=== PATIENT | female | born 1960 | race Caucasian/White ===

== ENCOUNTER 2017-07-27 10:01 | Day surgery (SDC) | payer OTHER, MEDICAID ==
[2017-07-23 13:57] LABS: BASOPHILS % (AUTO) 0.7 % (0.0-2.0); EOSINOPHILS # (AUTO) 0.2 K/uL (0.0-0.4); EOSINOPHILS % (AUTO) 4.5 % (0.0-4.0); HEMATOCRIT 43.3 % (36-48); HEMOGLOBIN 14.4 g/dL (12.0-16.0); LYMPHOCYTES # (AUTO) 2.1 K/uL (1.0-5.5); LYMPHOCYTES % (AUTO) 41.5 % (20.5-51.5); MEAN CORPUSCULAR HEMOGLOBIN 32 pg (27-31); MEAN CORPUSCULAR HGB CONC 33 % (32-36); MEAN CORPUSCULAR VOLUME 95 fL (79.0-98.0); MONOCYTES # (AUTO) 0.5 K/uL (0.0-1.0); MONOCYTES % (AUTO) 9.1 % (1.7-9.3); NEUTROPHILS # (AUTO) 2.2 K/uL (1.8-7.7); NEUTROPHILS % (AUTO) 44.2 % (40.0-70.0); PLATELET COUNT (AUTO) 229 K/uL (130-430); RED BLOOD CELL COUNT(AUTO) 4.55 MIL/uL (4.2-6.2); RED CELL DISTRIBUTION WIDTH 13.2 % (9.0-15.0)
[2017-07-23 14:16] LABS: BILIRUBIN,URINE NEGATIVE (NEGATIVE); BLOOD, URINE NEGATIVE (NEGATIVE); CLARITY/URINE CLEAR (CLEAR); COLOR,URINE YELLOW (YELLOW); GLUCOSE,URINE NEGATIVE (NEGATIVE); KETONES,URINE 1+ (NEGATIVE); LEUKOCYTE ESTERASE ,URINE NEGATIVE (NEGATIVE); NITRITE, URINE NEGATIVE (NEGATIVE); PH,URINE 7.5 (5.0-8.0); PROTEIN URINE NEGATIVE (NEGATIVE)
[2017-07-23 14:47] LABS: CALCIUM 9.3 mg/dL (8.4-11.0); CREATININE 0.72 mg/dL (0.55-1.30); POTASSIUM 3.8 mmol/L (3.5-5.1)
[~2017-07-27] VITALS: Ht 165.1 cm; Wt 109.8 kg
[~2017-07-27 10:01] MED LIST: CEFAZOLIN SOD 2 GM in D5W 50 ML IV ONE
[2017-07-27] MEDS ORDERED: MIDAZOLAM HCL 5 MG/5 ML VIAL IVP ONE (11:30)
[2017-07-27] MEDS ORDERED: KETOROLAC TROMETHAMINE 30 MG VIAL IVP ONE (11:30)
[2017-07-27] MEDS ORDERED: LR 1,000 ML IV.SOLN IV ONE (11:30)
[2017-07-27] MEDS ORDERED: PROPOFOL 200MG/ 20ML VIAL (DIPRIVAN) IV ONE (11:30)
[2017-07-27] MEDS ORDERED: LIDOCAINE MPF 0.5% 250 MG/50 ML VIAL INJ ONE (11:30)
[2017-07-27] MEDS ORDERED: NS IRRIG SOLN 1000 ML IR ONE (11:30)
[2017-07-27] MEDS ORDERED: ONDANSETRON HCL 4 MG/2 ML VIAL IVP PRN (12:30)
[2017-07-27] MEDS ORDERED: fentaNYL CITRATE/PF 100 MCG/2 ML AMP IVP PRN ×2 (12:30)
[2017-07-27] MEDS ORDERED: D5LR 1,000 ML IV SCH (12:59)
[2017-07-27] MEDS ORDERED: DIPHENHYDRAMINE HCL 25 MG CAPSULE PO PRN (13:00)
[2017-07-27] MEDS ORDERED: HYDROcodone/ACETAMIN 5-325 MG TAB (NORCO/ VICODIN) PO PRN (13:00)
[2017-07-27] MEDS ORDERED: fentaNYL CITRATE/PF 100 MCG/2 ML AMP IVP ONE (13:05)
[2017-07-27] MEDS ORDERED: fentaNYL CITRATE/PF 100 MCG/2 ML AMP ONE (13:11)
[2017-07-27] MEDS ORDERED: HYDROcodone/ACETAMIN 5-325 MG TAB (NORCO/ VICODIN) ONE (14:32)
[2017-07-27 17:20] VITALS: BP_SYST 118
== END 2017-07-27 16:50 | disposition home or self-care (01) ==
LOC: SMU 10:01 → SDS 10:01
PROVIDERS: ATTEND Orthopaedic Surgery
DX: G56.01 Carpal tunnel syndrome, right upper limb (principal); Z68.37 Body mass index [BMI] 37.0-37.9, adult; R56.9 Unspecified convulsions; M17.0 Bilateral primary osteoarthritis of knee; K21.9 Gastro-esophageal reflux disease without esophagitis; Z79.899 Other long term (current) drug therapy; B19.20 Unspecified viral hepatitis C without hepatic coma; Z98.890 Other specified postprocedural states; E66.3 Overweight
CPT/HCPCS: 36415; 64721; 71046; 80048; 81003; 85025; J0690; J1885; J2001; J2250; J2704; J3010; J7060; J7120

== ENCOUNTER 2018-02-05 09:11 | Inpatient (IN) | payer OTHER, MEDICAID ==
[2018-01-28 12:06] LABS: BILIRUBIN,URINE NEGATIVE (NEGATIVE); BLOOD, URINE NEGATIVE (NEGATIVE); CLARITY/URINE CLEAR (CLEAR); COLOR,URINE YELLOW (YELLOW); GLUCOSE,URINE NEGATIVE (NEGATIVE); KETONES,URINE NEGATIVE (NEGATIVE); LEUKOCYTE ESTERASE ,URINE NEGATIVE (NEGATIVE); NITRITE, URINE NEGATIVE (NEGATIVE); PH,URINE 7.5 (5.0-8.0); PROTEIN URINE NEGATIVE (NEGATIVE); UROBILINOGEN,URINE 0.2 (0.2-1.0)
[2018-01-28 12:17] LABS: EOSINOPHILS # (AUTO) 0.2 K/uL (0.0-0.4); LYMPHOCYTES # (AUTO) 2.3 K/uL (1.0-5.5); MEAN CORPUSCULAR HEMOGLOBIN 32 pg (27-31); MEAN CORPUSCULAR VOLUME 96 fL (79.0-98.0)
[2018-01-28 12:20] LABS: CALCIUM 9.3 mg/dL (8.4-11.0); CREATININE 0.73 mg/dL (0.55-1.30); POTASSIUM 4.2 mmol/L (3.5-5.1)
[2018-01-28 12:28] LABS: BASOPHILS % (AUTO) 0.8 % (0.0-2.0); EOSINOPHILS % (AUTO) 3.3 % (0.0-4.0); HEMOGLOBIN 14.8 g/dL (12.0-16.0); LYMPHOCYTES % (AUTO) 42.9 % (20.5-51.5); MEAN CORPUSCULAR HGB CONC 34 % (32-36); MONOCYTES % (AUTO) 10.5 % (1.7-9.3); NEUTROPHILS % (AUTO) 42.5 % (40.0-70.0); PLATELET COUNT (AUTO) 226 K/uL (130-430); RED CELL DISTRIBUTION WIDTH 13.3 % (9.0-15.0); WHITE BLOOD COUNT (AUTO) 5.4 K/uL (4.8-10.8)
[2018-01-28 12:29] LABS: MONOCYTES # (AUTO) 0.6 K/uL (0.0-1.0); NEUTROPHILS # (AUTO) 2.3 K/uL (1.8-7.7)
[~2018-02-05] VITALS: Ht 165.1 cm; Wt 106.1 kg
[2018-02-05] MEDS ORDERED: VANCOMYCIN HCL 1 GM/NS PREMIX 250 ML IV ONE (09:15)
[2018-02-05] MEDS ORDERED: CEFAZOLIN 2 GM IVPB PREMIX 50 ML IV ONE (09:15)
[2018-02-05] MEDS ORDERED: POLYMYXIN 500,000/BACIT.10,000 UNITS in NS IRR 1 L IR ONE (10:21)
[2018-02-05] MEDS ORDERED: OMEP20CA10 PO (10:45)
[2018-02-05] MEDS ORDERED: LAM25 PO (10:45)
[2018-02-05] MEDS ORDERED: DIVA250T6 PO (10:45)
[2018-02-05] MEDS ORDERED: [UNRECOGNIZED DRUG - OTHER] PO (10:45)
[2018-02-05] MEDS ORDERED: TIMO5DRO4 OP (10:45)
[2018-02-05] MEDS ORDERED: VITD2000 PO (10:45)
[2018-02-05] MEDS ORDERED: HYDR-4272 PO (10:45)
[2018-02-05] MEDS ORDERED: CALC200T47 PO (10:45)
[2018-02-05] MEDS ORDERED: TRANEXAMIC ACID 1,000 MG/10 ML VIAL IV ONE (11:21)
[2018-02-05] MEDS ORDERED: MIDAZOLAM HCL 5 MG/5 ML VIAL IVP ONE (11:21)
[2018-02-05] MEDS ORDERED: LR 1,000 ML IV.SOLN IV ONE (11:21)
[2018-02-05] MEDS ORDERED: BUPIVACAINE /DEX PF 0.75% SPINAL 2 ML AMP INJ ONE (11:21)
[2018-02-05] MEDS ORDERED: MORPHINE SULFATE 10MG/10ML PF AMP EP ONE (11:21)
[2018-02-05] MEDS ORDERED: VANCOMYCIN HCL 1000 MG/VIAL IV ONE (11:21)
[2018-02-05] MEDS: ROPIVACAINE 0.2% 550 ML INJ SCH (12:17)
[2018-02-05] MEDS ORDERED: OXYCODONE/ACETAMINOPHEN *10*mg/325 mg TABLET PO PRN (12:25)
[2018-02-05] MEDS ORDERED: NALOXONE HCL 0.4 MG/ML AMP (NARCAN) IVP PRN ×2 (12:30)
[2018-02-05] MEDS ORDERED: NALBUPHINE HCL 10 MG/ML AMP IVP PRN ×2 (12:30)
[2018-02-05] MEDS ORDERED: MORPHINE SULFATE 10MG/10ML PF AMP SP SCH (12:30)
[2018-02-05] MEDS ORDERED: KETOROLAC TROMETHAMINE 30 MG VIAL IVP PRN (12:30)
[2018-02-05] MEDS ORDERED: DIPHENHYDRAMINE INJ 50 MG/ML VIAL IVP PRN (12:30)
[2018-02-05] MEDS ORDERED: fentaNYL CITRATE/PF 100 MCG/2 ML AMP IVP PRN ×2 (12:30)
[2018-02-05] MEDS ORDERED: ONDANSETRON HCL 4 MG/2 ML VIAL IVP PRN ×3 (12:30)
[2018-02-05] MEDS ORDERED: KETOROLAC TROMETHAMINE 60 MG/2 ML VIAL IM PRN (12:30)
[2018-02-05 15:50] VITALS: BP_SYST 128
--- NOTE | 2018-02-05 15:57 | NUR ---
Consult called: for Dr. Berrios, regarding medical management, ordered by Dr. Hugo, spoke with Angela.
--- NOTE | 2018-02-05 16:00 | NUR ---
INITIAL NOTE RECEIVED PT IN BED, NO S/S OF DISTRESS OR SOB NOTED, PT HAS NO C/O PAIN AT THIS TIME, PT IN STABLE CONDITION, PT AAOX4, VERBAL. IV CATHETER PATENT, NO SIGN OF INFECTION OR INFILTRATION NOTED. BED AT LOWEST POSITION, CALL LIGHT WITHIN REACH, WILL CONTINUE TO MONITOR PT FOR ANY CHANGES, FALL AND SAFETY PRECAUTIONS IN PLACE. PT ABLE TO MOVE TOES ON RIGHT FOOT, SENSATION PRESENT, CAPILLARY REFILL LESS THAN 3 SECONDS, PULSE PALPABLE, NO TINGLING OR PARALYSIS PER PT. DRESSING ON RIGHT KNEE, CLEAN AND DRY, PT HAS AN ON Q PUMP AT 8ML/HR. EDUCATED PT ON USE OF INCENTIVE SPIROMETER, PT TO USE 10 TIMES AN HOUR WHILE AWAKE, PT VERBALIZED UNDERSTANDING, PT AT 1000ML. PT HAS TRAPEZE FOR BED MOBILITY.
[2018-02-05 16:07] VITALS: BP_SYST 119
[2018-02-05] MEDS: DIPHENHYDRAMINE HCL 25 MG CAPSULE PO PRN ×2 (16:55→21:02)
[2018-02-05] MEDS: D5/0.45 NS 1,000 ML IV SCH ×2 (16:55→23:51)
--- NOTE | 2018-02-05 16:55 | NUR ---
ITCHING PT HAS C/O ITCHINESS, NO RASH NOTED, ADMINISTERED BENADRYL PRN ORDERED.
--- NOTE | 2018-02-05 17:04 | NUR ---
ROUNDS DR EVER CANO, AWARE OF PATIENT'S CONDITION, NEW ORDERS WRITTEN.
[2018-02-05] MEDS ORDERED: COMMUNICATION ORDER XX ONE (17:15)
[2018-02-05] MEDS ORDERED: TRANEXAMIC ACID 1,000 MG in NS 50 ML IV ONE (17:15)
--- NOTE | 2018-02-05 17:55 | NUR ---
MEDICATION REASSESSMENT PT STATED THAT HER ITCHINESS IS GETTING BETTER WITH THE MEDICATION.
[2018-02-05] MEDS: KETOROLAC TROMETHAMINE 15 MG VIAL IVP SCH ×2 (17:56→23:51)
--- NOTE | 2018-02-05 18:20 | NUR ---
MD CALL DR MCBRIDE CALLED IN REGARDS TO PATIENT'S CONDITION, MADE HIM AWARE THAT PT WAS C/O ITCHINESS AND HE SAID IT WAS DUE TO THE DURAMORPH AND IT CAUSES ITCHINESS, THAT IT IS OK TO GIVE BENADRYL EVERY 4 HOURS NEEDED FOR ITCHINESS. WILL ENDORSE TO INCOMING NURSE.
[2018-02-05 18:35] VITALS: BP_SYST 106
--- NOTE | 2018-02-05 18:36 | NUR ---
CLOSING NOTE PT IN BED, NO S/S OF DISTRESS OR SOB NOTED, PT HAS NO C/O PAIN AT THIS TIME, PT IN STABLE CONDITION, PT AAOX4, VERBAL. IV CATHETER PATENT, NO SIGN OF INFECTION OR INFILTRATION NOTED. BED AT LOWEST POSITION, CALL LIGHT WITHIN REACH, WILL CONTINUE TO MONITOR PT FOR ANY CHANGES, FALL AND SAFETY PRECAUTIONS IN PLACE. PT ABLE TO MOVE TOES ON RIGHT FOOT, SENSATION PRESENT, CAPILLARY REFILL LESS THAN 3 SECONDS, PULSE PALPABLE, NO TINGLING OR PARALYSIS PER PT. DRESSING ON RIGHT KNEE, CLEAN AND DRY, PT HAS AN ON Q PUMP AT 8ML/HR. EDUCATED PT ON USE OF INCENTIVE SPIROMETER, PT AT 1000ML. PT HAS TRAPEZE FOR BED MOBILITY, [facility].
--- NOTE | 2018-02-05 19:05 | NUR ---
OPENING NOTES Late entry due to patient care. Bedside report received from dayshift nurse. Patient received AOx4, lying in bed, polar care on right knee, right knee fully extended with pillow under right heel. No s/s of acute distress noted. Breathing even and unlabored. IVF infusing well. Delong attached, secured and draining by gravity. HOB raised. Call light with patient, instructed to call for any assistance, patient verbalized understanding. Bed alarm is on. Bed is locked and at lowest position. Will continue to monitor.
[2018-02-05 20:00] VITALS: BP_SYST 121
--- NOTE | 2018-02-05 21:00 | NUR ---
ITCHING/ASSESSMENT/ROUNDS Patient complained of itching, Benadryl to be administered per PRN order. Patient in bed, HOB raised, no complaint of pain at this time. Breathing even and unlabored. Polar care connected, refilled with ice. Right knee fully extended, pillow below right heel. Dressing intact, clean and dry, no signs of bleeding or drainage noted. Qpump and hemovac attached to right lower extremity. IVF infusing well, IV site shows no signs of infection or infiltration, patent. Delong attached, secured, and draining by gravity. Call light with patient. Bed alarm on. Will continue to monitor and reassess.
[2018-02-05] MEDS: SENNOSIDES 8.6 MG TABLET PO SCH (21:01)
[2018-02-05] MEDS: OMEPRAZOLE 20 MG CAPSULE.DR (PriLOSEC) PO SCH (21:01)
[2018-02-05] MEDS: LamoTRIgine 25 MG TABLET PO SCH (21:01)
[2018-02-05] MEDS: DIVALPROEX SODIUM 250 MG TABLET(DEPAKOTE) PO SCH (21:02)
--- NOTE | 2018-02-05 23:00 | NUR ---
ROUNDS Patient in bed sleeping at this time. No signs of discomfort noted. Chest rise and fall even bilaterally. IVF infusing well. Flexi pulse attached to left foot, operating. Delong attached, secured, and draining by gravity. Right knee fully extended, pillow supporting right heel. All needs met at this time. Fall and safety precautions maintained. Will continue to monitor.
[2018-02-06] VITALS: BP_SYST 132
--- NOTE | 2018-02-06 00:30 | NUR ---
ITCHING Patient complained of feeling itchy. Benadryl to be administered per PRN order. Will continue to monitor and reassess.
[2018-02-06] MEDS: DIPHENHYDRAMINE HCL 25 MG CAPSULE PO PRN ×3 (00:37→09:38)
--- NOTE | 2018-02-06 02:30 | NUR ---
ROUNDS Patient in bed sleeping at this time. No s/s of acute distress noted. Breathing even and unlabored. IVF infusing well. Right knee fully extended, pillow under right heel. Polar care attached, Qpump and hemovac attached. Call light with patient. Bed alarm on. Will continue to monitor.
--- NOTE | 2018-02-06 04:30 | NUR ---
ROUNDS Patient sleeping comfortably at this time. No signs of discomfort noted. Chest rise and fall even bilaterally. Call light with patient. Bed alarm on. Will continue to monitor.
[2018-02-06] MEDS: D5/0.45 NS 1,000 ML IV SCH (05:36)
[2018-02-06] MEDS: KETOROLAC TROMETHAMINE 15 MG VIAL IVP SCH (05:39)
--- NOTE | 2018-02-06 06:02 | NUR ---
ROUNDS Patient in bed sleeping at this time. No s/s of acute distress noted. Breathing even and unlabored. Call light with patient. Bed alarm on. Will continue to monitor.
--- NOTE | 2018-02-06 06:38 | NUR ---
CLOSING NOTES Patient in bed sleeping at this time. Patient shows no s/s of acute distress. Breathing is even and unlabored. IVF infusing well, IV site shows no signs of infiltration or infection, patent. Seizure pads on side rails. Trapeze available at bedside. Polar care attached to right knee. Qpump, on 8ml/hr, and hemovac attached to right knee. Dressing on right knee intact, clean and dry. Patient's right knee fully extended, pillow below right heel. Flexi pulse attached to left foot. Delong attached, secured, and draining by gravity. All of patient's needs met throughout shift. Fall and safety precautions maintained throughout shift. Will continue to monitor until patient care is endorsed to oncoming day shift nurse.
[2018-02-06 07:17] LABS: BASOPHILS % (AUTO) 0.6 % (0.0-2.0); EOSINOPHILS # (AUTO) 0.1 K/uL (0.0-0.4); EOSINOPHILS % (AUTO) 0.9 % (0.0-4.0); HEMATOCRIT 34.1 % (36-48); HEMOGLOBIN 10.9 g/dL (12.0-16.0); LYMPHOCYTES # (AUTO) 1.4 K/uL (1.0-5.5); LYMPHOCYTES % (AUTO) 20.6 % (20.5-51.5); MEAN CORPUSCULAR HEMOGLOBIN 31 pg (27-31); MEAN CORPUSCULAR HGB CONC 32 % (32-36); MEAN CORPUSCULAR VOLUME 97 fL (79.0-98.0); MONOCYTES # (AUTO) 0.9 K/uL (0.0-1.0); MONOCYTES % (AUTO) 13.5 % (1.7-9.3); NEUTROPHILS # (AUTO) 4.3 K/uL (1.8-7.7); NEUTROPHILS % (AUTO) 64.4 % (40.0-70.0); PLATELET COUNT (AUTO) 179 K/uL (130-430); RED BLOOD CELL COUNT(AUTO) 3.53 MIL/uL (4.2-6.2); RED CELL DISTRIBUTION WIDTH 13.2 % (9.0-15.0); WHITE BLOOD COUNT (AUTO) 6.7 K/uL (4.8-10.8)
[2018-02-06 07:23] LABS: CALCIUM 8.9 mg/dL (8.4-11.0); CREATININE 0.67 mg/dL (0.55-1.30); POTASSIUM 4.2 mmol/L (3.5-5.1)
[2018-02-06 08:00] VITALS: BP_SYST 127
[2018-02-06] MEDS: HYDROcodone/ACETAMIN 10-325 MG TAB PO PRN ×5 (08:01→23:26)
--- NOTE | 2018-02-06 08:05 | NUR ---
INITIAL ROUNDS Received pt AAOx4, no s/s resp distress, educated on use of incentive spirometer Q hour while awake-demonstration/teach back done. Pt c/o pain to right knee-pain medication given as ordered. Plan of care for the day reviewed with pt-pt verbalized her understanding. Right knee with clean, dry dressing in place, with polar care, right heel elevated on pillow, LLE with plexi-pulse in place. Neurovascular checks intact. Pain management, skin and safety discussed-teach back done. Needs met, call light within reach.
--- NOTE | 2018-02-06 08:22 | NUR ---
Nutrition Update Jonathan Scale 17 noted. Pt admitted for bilateral post-traumatic osteoarthritis of knee. Diet: regular BMI: 38.9 kg/m2 RD to follow per nutrition care standards.
[2018-02-06] MEDS: FERROUS SULFATE 140 MG TABLET.ER PO SCH (09:36)
[2018-02-06] MEDS: LamoTRIgine 25 MG TABLET PO SCH ×2 (09:37→20:39)
[2018-02-06] MEDS: DIVALPROEX SODIUM 250 MG TABLET(DEPAKOTE) PO SCH ×2 (09:37→20:38)
[2018-02-06] MEDS: OMEPRAZOLE 20 MG CAPSULE.DR (PriLOSEC) PO SCH ×2 (09:37→20:39)
[2018-02-06] MEDS: MULTIVITAMINS TAB 1 TABLET PO SCH (09:38)
[2018-02-06] MEDS: ASCORBIC ACID 500 MG TABLET PO SCH ×2 (09:38→20:39)
[2018-02-06] MEDS: TIMOLOL MALEATE 0.5% OPHTHALMIC DROPS 5 ML LEFT EYE SCH (09:39)
[2018-02-06] MEDS: RIVAROXABAN 10 MG TABLET PO SCH (09:46)
--- NOTE | 2018-02-06 10:19 | NUR ---
ROUNDS/PHYSICAL THERAPY Pt currently working with the physical therapist, sitting up in bedside chair. No s/s resp distress. C/o itchiness earlier-given Benadryl as ordered. Call light within reach.
[2018-02-06] MEDS: DIPHENHYDRAMINE INJ 50 MG/ML VIAL IVP PRN ×2 (12:09→20:46)
[2018-02-06 12:10] VITALS: BP_SYST 104
--- NOTE | 2018-02-06 12:10 | NUR ---
ITCHINESS Pt c/o itchiness "all over", pt given Benadryl IVP as ordered. Pt initially requested pain medication, then declined, stated she is mostly uncomfortable from the itchiness. Pt made comfortable in bed-pt declined to sit up in bedside chair for lunch-pt stated that physical therapy wore her out. Needs met, call light within reach.
[2018-02-06] MEDS: ROPIVACAINE 0.2% 550 ML INJ SCH (12:17)
--- NOTE | 2018-02-06 12:43 | NUR ---
Case mgt: Met w/pt at bedside-she asked me to also call Phylicia w/[facility]-pt says Phylicia drives her to her appointments. Per pt and Phylicia, [facility] is 1st choice then [facility]. Per Phylicia, pt is mentally disabled but sqvg-[id number]-egedg alone but would be safer to go to SNF [id number]-[id number] agreeable to this plan.Pt does have FWW (no hand brakes) and also raised toilet seat/cane at home. Requesting CALISTA Melara to fax snf referral to [facility]. If both snfs listed are full, please call Phylicia for 3rd choice at [phone]-- RN
--- NOTE | 2018-02-06 12:47 | NUR ---
Sister Elidia Bryantam updated for dc plan to [facility]--[phone]-- RN
--- NOTE | 2018-02-06 14:18 | NUR ---
Case mgt: Placed call to Dr. Hugo's office for dc planning orders--per Randa at his office, Dr. Huog requesting [facility] Home Health. I did explain pt lives alone and is mentally disabled and pt/Phylicia at [facility] requested [facility] or [facility] for rehab and might not be safe dc home as she lives alone. ANNEMARIE RN
--- NOTE | 2018-02-06 15:20 | NUR ---
ROUNDS Pt resting quietly in bed with no s/s resp distress, no c/o pain or discomfort. Noted small amount of drainage to right knee dressing post physical therapy-dressing reinforced. Needs met, call light within reach.
[2018-02-06 16:11] VITALS: BP_SYST 133
--- NOTE | 2018-02-06 16:16 | NUR ---
Case mgt: Placed 2nd call to Dr. Hugo's office to discuss dc planning orders for probable SNF instead of Home Health--s/w Brigid at Dr. Hugo's office-she will give message again to Randa to give to Dr. Hugo. ANNEMARIE RN
[2018-02-06] MEDS: HYDROcodone/ACETAMIN 7.5-325 MG TAB PO PRN ×2 (16:49→20:39)
--- NOTE | 2018-02-06 17:03 | NUR ---
Case mgt: Haven't rec'd call back yet from Dr. Bethel cruz. Updated Siobhan CANO Director to f/u in am for dc planning orders. ANNEMARIE AIKEN
--- NOTE | 2018-02-06 17:30 | NUR ---
ROUNDS Pt sitting up in bed with no s/s resp distress, no c/o pain or discomfort. Pt declined getting out of bed for dinner. Needs met, call light within reach.
--- NOTE | 2018-02-06 19:05 | NUR ---
CLOSING NOTE Pt c/o pain to right knee 10/10-pt given [place] as ordered. Pt repositioned for comfort. No s/s resp distress. All precautions remain in place. Needs met, call light within reach.
--- NOTE | 2018-02-06 19:10 | NUR ---
OPENING NOTES Late entry due to patient care. Bedside report received from dayshift nurse. Patient received AOx4, lying in bed, complaining of 4/10 right knee pain. Trapeze present for bed mobility/repositioning. Polar care attached to right knee. Dressing intact, with a little bleeding noted. Hemovac and qpump, on 8ml/hr, attached to right knee. Pillow support under right heel to keep knee full extended. SCD attached to left foot. Delong attached, secured and draining by gravity. IV site is patent, no signs of infiltration or infection. Call light with patient, instructed to call for any assistance, patient verbalized understanding. Bed alarm on. Bed is locked and at lowest position. Will continue to monitor.
[2018-02-06 20:00] VITALS: BP_SYST 138
[2018-02-06] MEDS: SENNOSIDES 8.6 MG TABLET PO SCH (20:38)
--- NOTE | 2018-02-06 21:00 | NUR ---
ROUNDS/EDUCATION: IS Patient in bed watching TV at this time. No s/s of acute distress noted, patient states that she is comfortable at this time. Breathing is even and unlabored. Patient educated on IS, patient was able to demonstrate back proper use of IS, reached 1500. Patient encouraged to repeat 10 times per hour when awake, patient verbalized understanding. Call light with patient. Bed alarm on. Will continue to monitor.
--- NOTE | 2018-02-06 23:00 | NUR ---
ROUNDS Patient in bed sleeping at this time. No signs of discomfort noted. Chest rise and fall even bilaterally. Call light with patient. Bed alarm on. Will continue to monitor.
--- NOTE | 2018-02-06 23:26 | NUR ---
PAIN Patient complained of 9/10 right knee pain. [place] administered per PRN orders. Will continue to monitor and reassess.
[2018-02-07 00:18] VITALS: BP_SYST 158
--- NOTE | 2018-02-07 01:00 | NUR ---
PAIN Patient complained of 8/10 right knee pain. [place] to be administered per PRN order. Breathing is even and unlabored. Seizure pads attached to side rails. Call light with patient. Bed alarm on. Will continue to monitor and reassess. Addendum: 02/08/18 at 0225 by Phil Munguia RN WRONG DATE, disregard note.
--- NOTE | 2018-02-07 01:22 | NUR ---
ROUNDS Patient in bed sleeping at this time. No s/s of acute distress noted. Breathing is even and unlabored. Polar care and SCDs attached and operating. Pillow support under right heel. Call light with patient. Bed alarm on. Will continue to monitor.
[2018-02-07] MEDS: HYDROcodone/ACETAMIN 7.5-325 MG TAB PO PRN ×2 (01:34→05:40)
[2018-02-07] MEDS: DIPHENHYDRAMINE INJ 50 MG/ML VIAL IVP PRN ×2 (02:03→05:58)
--- NOTE | 2018-02-07 03:20 | NUR ---
PAIN Patient complains of 8/10 right knee pain. [place] administered per PRN orders. Will continue to monitor and reassess. Call light with patient. Bed alarm on.
[2018-02-07] MEDS: HYDROcodone/ACETAMIN 10-325 MG TAB PO PRN ×4 (03:22→21:31)
--- NOTE | 2018-02-07 05:20 | NUR ---
PAIN/DC MARADIAGA/POLAR CARE Patient complained of 6/10 right knee pain. Will administer PRN medication. Maradiaga DC'ed at this time per Dr. Hugo's order to DC on 2nd day post op. Patient tolerated procedure well, no signs of discomfort noted. [facility] care refilled with ice at this time. All needs met at this time. WIll continue to monitor.
[2018-02-07 05:38] LABS: BASOPHILS % (AUTO) 0.3 % (0.0-2.0); CALCIUM 8.9 mg/dL (8.4-11.0); CREATININE 0.85 mg/dL (0.55-1.30); EOSINOPHILS # (AUTO) 0.1 K/uL (0.0-0.4); EOSINOPHILS % (AUTO) 1.2 % (0.0-4.0); HEMOGLOBIN 11.3 g/dL (12.0-16.0); LYMPHOCYTES # (AUTO) 1.8 K/uL (1.0-5.5); LYMPHOCYTES % (AUTO) 21.3 % (20.5-51.5); MEAN CORPUSCULAR HEMOGLOBIN 33 pg (27-31); MEAN CORPUSCULAR HGB CONC 34 % (32-36); MEAN CORPUSCULAR VOLUME 96 fL (79.0-98.0); MONOCYTES % (AUTO) 11.7 % (1.7-9.3); NEUTROPHILS # (AUTO) 5.5 K/uL (1.8-7.7); NEUTROPHILS % (AUTO) 65.5 % (40.0-70.0); PLATELET COUNT (AUTO) 178 K/uL (130-430); POTASSIUM 4.3 mmol/L (3.5-5.1); RED BLOOD CELL COUNT(AUTO) 3.42 MIL/uL (4.2-6.2); RED CELL DISTRIBUTION WIDTH 13.6 % (9.0-15.0); WHITE BLOOD COUNT (AUTO) 8.4 K/uL (4.8-10.8)
--- NOTE | 2018-02-07 06:55 | NUR ---
DR MCBRIDE CHANGED DRESSING/CLOSING NOTES Dr. Mcbride changed patient's dressing on right knee and pulled out hemovac. Patient tolerated procedure well. Polar care reattached and SCD on left foot attached and operating. Patient resting in bed at this time, no s/s of acute distress noted. Breathing is even and unlabored. On Qpump attached to right lower extremity, 8ml/hr. Pillow placed under right heel. All of patient's needs met throughout shift. Fall and safety precautions maintained throughout shift. Will continue to monitor until patient care is endorsed to oncoming day shift nurse.
[2018-02-07 07:45] VITALS: BP_SYST 135
--- NOTE | 2018-02-07 07:45 | NUR ---
OPENING NOTE Received report and initiated patient care. Patient is AOx4. Dressing was changed by Dr. Hugo at change of shift and removed Hemovac drain. Rt knee dressing is dry and intact. Polar pack is connected and has ice. Qpump intact, set at 8. Rt heel elevated on pillow, Lt plexiplulse in place. Plan of care discussed and encouraged patient to sit up for meal. Will continue to monitor.
[2018-02-07] MEDS: FERROUS SULFATE 140 MG TABLET.ER PO SCH (09:27)
[2018-02-07] MEDS: TIMOLOL MALEATE 0.5% OPHTHALMIC DROPS 5 ML LEFT EYE SCH (09:27)
[2018-02-07] MEDS: MULTIVITAMINS TAB 1 TABLET PO SCH (09:28)
[2018-02-07] MEDS: DIVALPROEX SODIUM 250 MG TABLET(DEPAKOTE) PO SCH ×2 (09:28→21:30)
[2018-02-07] MEDS: ASCORBIC ACID 500 MG TABLET PO SCH ×2 (09:28→21:31)
[2018-02-07] MEDS: LamoTRIgine 25 MG TABLET PO SCH ×2 (09:29→21:31)
[2018-02-07] MEDS: OMEPRAZOLE 20 MG CAPSULE.DR (PriLOSEC) PO SCH ×2 (09:29→21:31)
[2018-02-07] MEDS: RIVAROXABAN 10 MG TABLET PO SCH (09:31)
--- NOTE | 2018-02-07 09:45 | NUR ---
VOIDS Patient placed on bedpan, voided 100ml.
--- NOTE | 2018-02-07 10:46 | NUR ---
ROUNDS/PT Patient up w/PT, per Lewis Physical therapist, the patient is guarding and is concerned about leg being straight. He is recommending CPM. Will page Dr. Hugo to notify. Patient did not tolerate sitting in chair d/t pain, she was placed back in bed.
--- NOTE | 2018-02-07 11:10 | NUR ---
NO CPM Spoke with Dr. Hugo and informed him of what Lewis the physical therapist stated regarding the pt's guarding of her right knee and his suggest of a CPM. Dr. Hugo stated "no way", Dr. Hugo stated for the physical therapist to work more with the patient. Will inform physical therapy.
[2018-02-07 12:00] VITALS: BP_SYST 129
--- NOTE | 2018-02-07 12:30 | NUR ---
ROUNDS Patient asked for assistance with the bedpan. The TELEPHONE SUPERVISOR and I provided assistance.
--- NOTE | 2018-02-07 13:35 | NUR ---
PAIN Patient reports pain to right knee as 9/10. Administered [place] 10-325 as ordered. Will continue to monitor.
--- NOTE | 2018-02-07 15:20 | NUR ---
IV-REINSERTION IV on Rt hand (22G) was red and swollen, it was removed. A new IV 24G was inserted on the left hand. The patient tolerated the procedure.
[2018-02-07 16:47] VITALS: BP_SYST 134
--- NOTE | 2018-02-07 17:15 | NUR ---
RLE WARMTH/MD CALLED Noted during pt's neurovascular assessment that pt's RLE (kearns area) was warm to touch-more so than earlier today, RLE also warmer to touch than LLE, strong pedal pulse noted by this RN and flotation tender, pt able to wiggle her toes, flex and extend her right foot. Pt also c/o of numbness to right ankle/foot relieved with foot pumping. Incision site checked, no warmth or s/s infection to sight, swelling to knee noted-same as morning assessment. Dr. Hugo paged-DR. Sarmiento fire control mechanic and informed. No orders given, DR. Sarmiento stated warmth to RLE is due to increased blood flow to the area due to surgery and the distal numbness at times may be due to pt's inactivity/poor ambulation ability with physical therapy. DR. Sarmiento stated to encourage pt to pump her RLE every hour while awake and when she feels the numbness.
--- NOTE | 2018-02-07 18:35 | NUR ---
CLOSING NOTE Patient is resting in bed, eyes are closed. There is no s/sx of distress. Call light is within reach. Will endorse care to night nurse.
--- NOTE | 2018-02-07 19:05 | NUR ---
OPENING NOTES Late entry due to patient care. Bedside report received from dayshift nurse. Patient received in bed, sleeping, no s/s of acute distress noted. Breathing is even and unlabored. Pillow under right heel, polar care attached to right knee,Qpump on 8 ml/hr attached to right lower extremity. Foot pump attached to left foot, operating. Call light with patient, bed alarm on. Bed is locked and at lowest position. Will continue to monitor.
[2018-02-07 20:00] VITALS: BP_SYST 132
--- NOTE | 2018-02-07 21:00 | NUR ---
PAIN/MEDPASS Patient complained of 8/10 right knee pain. [place] to be administered per PRN order. Scheduled medications administered at this time. Patient tolerated activity well. Breathing even and unlabored. Polar care attached to right knee, refilled with ice. Heel offloaded with pillow. Seizure pads attached to side rail. SCD attached to left foot. All needs met at this time. Call light with patient. Bed alarm on. Will continue to monitor.
[2018-02-07] MEDS: SENNOSIDES 8.6 MG TABLET PO SCH (21:30)
--- NOTE | 2018-02-07 23:00 | NUR ---
VOID/RODOLFO CARE Patient made RN aware that she voided on the bed. Rodolfo care conducted by CENTRAL OFFICE FRAME WIRER and RN at this time. Patient tolerated activity well. Complained of pain during turning but repositioned for comfort after rodolfo care. Patient stated that she is comfortable. Call light with patient. Bed alarm on.
[2018-02-08] VITALS: BP_SYST 152
--- NOTE | 2018-02-08 01:00 | NUR ---
PAIN Patient complained of 8/10 right knee pain. [place] to be administered per PRN order. Breathing is even and unlabored. Seizure pads attached to side rails. Call light with patient. Bed alarm on. Will continue to monitor and reassess.
[2018-02-08] MEDS: HYDROcodone/ACETAMIN 10-325 MG TAB PO PRN ×2 (01:19→09:11)
--- NOTE | 2018-02-08 03:00 | NUR ---
ROUNDS Patient sleeping at this time. No signs of discomfort noted. Chest rise and fall even bilaterally. Polar care refilled with ice at this time. Seizure pads attached to side rails. Call light with patient. Bed alarm on. Will continue to monitor.
--- NOTE | 2018-02-08 05:00 | NUR ---
VOIDED/RODOLFO CARE Patient made RN aware that she voided. Rodolfo care conducted by GAMES MANAGER and RN. Patient tolerated activity well. All needs met at this time. No s/s of acute distress. Breathing even and unlabored. Will continue to monitor. Call light with patient.
--- NOTE | 2018-02-08 05:19 | NUR ---
NAUSEA Patient complains of feeling nauseated. Will administer Zofran per PRN order. Will continue to monitor and reassess.
[2018-02-08] MEDS: ONDANSETRON HCL 4 MG/2 ML VIAL IVP PRN ×2 (05:23→16:29)
[2018-02-08 06:28] LABS: BASOPHILS # (AUTO) 0.1 K/uL (0.0-0.2); BASOPHILS % (AUTO) 0.8 % (0.0-2.0); EOSINOPHILS # (AUTO) 0.1 K/uL (0.0-0.4); HEMATOCRIT 30.8 % (36-48); HEMOGLOBIN 10.7 g/dL (12.0-16.0); LYMPHOCYTES # (AUTO) 2.1 K/uL (1.0-5.5); LYMPHOCYTES % (AUTO) 24.7 % (20.5-51.5); MEAN CORPUSCULAR HEMOGLOBIN 33 pg (27-31); MEAN CORPUSCULAR HGB CONC 35 % (32-36); MEAN CORPUSCULAR VOLUME 95 fL (79.0-98.0); MONOCYTES # (AUTO) 0.8 K/uL (0.0-1.0); MONOCYTES % (AUTO) 9.5 % (1.7-9.3); NEUTROPHILS # (AUTO) 5.3 K/uL (1.8-7.7); PLATELET COUNT (AUTO) 168 K/uL (130-430); RED BLOOD CELL COUNT(AUTO) 3.23 MIL/uL (4.2-6.2); RED CELL DISTRIBUTION WIDTH 13.4 % (9.0-15.0); WHITE BLOOD COUNT (AUTO) 8.4 K/uL (4.8-10.8)
--- NOTE | 2018-02-08 06:43 | NUR ---
CLOSING NOTES Patient in bed sleeping at this time. No s/s of acute distress noted. Breathing is even and unlabored. IV site is patent, no signs of infection or infiltration. Dressing on right knee intact and clean. Polar care attached and operating. Qpump attached to right lower extremity, on 8 ml/hr. SCD attached to left foot. HOB raised. Pillow under right heel. Seizure pads attached to side rails. All of patient's needs met throughout shift. Fall, safety, and seizure precautions maintained throughout shift. Will continue to monitor until patient care is endorsed to oncoming dayshift nurse.
[2018-02-08 06:51] LABS: CALCIUM 9.2 mg/dL (8.4-11.0); CREATININE 0.74 mg/dL (0.55-1.30); POTASSIUM 3.8 mmol/L (3.5-5.1)
--- NOTE | 2018-02-08 07:55 | NUR ---
OPENING NOTES, PT IN BED , AAOX4, NO SOB, NO RESP DISTRESS. DENIES PAIN BUT C/O OF INTERMITTENT R. LEG PAIN DURING MOVEMENT. PT DID NOT REQUIRE PAIN MEDS. PT IS AFEBRILE. VITALS W/IN NORMAL LIMITS. SALINE LOCK ON HAND INTACT AND PATENT WITH GOOD FLUSH. NO S/S OF INFILTRATION. R. LEG DRESSING INTACT, DRY , NO DRAINAGE NOTED. R. HEEL FLOATED ON PILLOW. QPUMP CONNECTED TO PT, IT APPEARS INTACT. SETTING WAS AT 8. BOTH LEGS FEELS EQUAL IN WARMTH AND PT DENIES ANY TINGLING AND NUMBNESS ON R. LEG. ABLE TO WIGGLE TOES AND FLEX HER FOOT. PT ASSISTED WITH BED KENNY, PT VOIDED BUT NOTED PT ALSO HAS INCONTINENCE OF URINE ON HER PADDINGS./CHUCKS. SAFETY PRECAUTION IN PLACE. CALL LIGHT IN REACH. BED IN LOW POSITION. PT ENCOURAGED TO CALL FOR ASSIST AND PAIN MED MED AND ANY CONCERNS. WILL CONT TO MONITOR.
[2018-02-08 08:09] VITALS: BP_SYST 142
[2018-02-08] MEDS: FERROUS SULFATE 140 MG TABLET.ER PO SCH (09:00)
[2018-02-08] MEDS: RIVAROXABAN 10 MG TABLET PO SCH (09:01)
[2018-02-08] MEDS: MULTIVITAMINS TAB 1 TABLET PO SCH (09:02)
[2018-02-08] MEDS: ASCORBIC ACID 500 MG TABLET PO SCH (09:02)
[2018-02-08] MEDS: DIVALPROEX SODIUM 250 MG TABLET(DEPAKOTE) PO SCH (09:02)
[2018-02-08] MEDS: OMEPRAZOLE 20 MG CAPSULE.DR (PriLOSEC) PO SCH (09:02)
[2018-02-08] MEDS: TIMOLOL MALEATE 0.5% OPHTHALMIC DROPS 5 ML LEFT EYE SCH (09:03)
[2018-02-08] MEDS: LamoTRIgine 25 MG TABLET PO SCH (09:03)
--- NOTE | 2018-02-08 09:59 | NUR ---
pt in bed, sleeping, appears comfortable, call light in reach. bed in low position. bed alarm on. will cont to monitor.
--- NOTE | 2018-02-08 11:05 | NUR ---
PAGED PAGED KUSUM PEREZ AT [phone] SPOKE WITH TAYO.
--- NOTE | 2018-02-08 11:19 | NUR ---
PAGED 7PAGED PÉREZ GONZALEZ AT [phone] SPOKE WITH NAOMIE.
--- NOTE | 2018-02-08 11:27 | NUR ---
DCP spoke to Abiola ([phone]) at [facility] pt accepted room 7B, will docnash be following or should one be assigned?. DCP spoke to pt nurse a order is needed.
[2018-02-08] MEDS ORDERED: IBUPROFEN 600 MG TABLET PO ONE (11:30)
--- NOTE | 2018-02-08 11:33 | NUR ---
spoke with farooq, said he will be here to around 1300 to see pt and change dressing. said to call dr daniel to check what time md will come by to dc the pt. called dr daniel and said she will be here around 1300 to see pt. new 1x order for ibuprofen given by to migraine
[2018-02-08 12:20] VITALS: BP_SYST 131
--- NOTE | 2018-02-08 14:27 | NUR ---
dr daniel was here and seen pt. said ok to dc pt to [facility].
--- NOTE | 2018-02-08 14:53 | NUR ---
DCP arrange transportation on Will Call with ([phone]) to [facility] (f [phone] p [phone]) room 7B. Pt packet at nurse station.
--- NOTE | 2018-02-08 16:09 | NUR ---
DR TEAGUE WAS HERE AND SEEN PT. SAID TO CHANGE DRESSING. ORDER COMPLIED WITH. DRESSING DONE ASEPTICALLY, PT TOLERATED WELL. SAID TO SEE HIM IN HIS OFFC IN 10 DAYS AND DO SAME DRESSING DAILY AND CALL MD FOR ANY PROBLEMS.
[2018-02-08] MEDS ORDERED: NON-FORMULARY MEDICATION (Hydrocodone/Acetaminophen (Norco 5-325 Tablet) 1 EACH) PO SCH (16:15)
[2018-02-08 16:36] VITALS: BP_SYST 131
[2018-02-08 16:38] VITALS: BP_SYST 120
[2018-02-08] MEDS ORDERED: RIVA10TA PO (16:47)
--- NOTE | 2018-02-08 16:59 | NUR ---
AMBULANCE ARRANGEMENT MADE CALLED [facility] FOR A 1800 [employer] ROOFER.
[2018-02-08] MEDS ORDERED: HYDR-2489 PO (17:01)
[2018-02-08] MEDS: HYDROcodone/ACETAMIN 7.5-325 MG TAB PO PRN (17:45)
--- NOTE | 2018-02-08 19:08 | NUR ---
D/C Patient PT DISCHARGED TO [facility]. SBAR REPORT GIVEN TO NURSE CARMEL. PRE DC VITALS WNL. PT HAS TOLERABLE PAIN. PT RECEIVED PAIN MEDS AT 1745. REPORT GIVEN TO AMBULANCE STAFF. ALL IV ACCESSES REMOVED, DRESSING APPLIED ON SITE AND NO BLEEDING NOTED. SURGICAL WOUND DRESSING AND INTACT. NO DRAINAGE NOTED. NEUROVASCULAR CHECKS DONE ON. R. LEG FEELS WARM TO TOUCH, SENSATION INTACT. NO NUMBENESS OR TINGLING REPORTED BY PT. PT ABLE TO WIGGLE TOES AND FLEX HER R. FOOT.
[2018-02-09] MEDS ORDERED: FOLIC ACID PO SCH (09:00)
[2018-02-09] MEDS ORDERED: IRON PO SCH (09:00)
[2018-02-09] MEDS ORDERED: CALCIUM CITRATE 200 MG TABLET PO SCH (09:00)
[2018-02-09] MEDS ORDERED: [UNRECOGNIZED DRUG - OTHER] PO SCH (09:00)
[2018-02-09] MEDS ORDERED: MULTIVIT MIN36 PO SCH (09:00)
[2018-02-09] MEDS ORDERED: CHOLECALCIFEROL (VITAMIN D3) 2,000 UNIT TABLET PO SCH (09:00)
== END 2018-02-08 19:08 | DRG 470 ==
LOC: SMU 09:11 → STU 15:54
PROVIDERS: ADMIT Orthopaedic Surgery; ATTEND Orthopaedic Surgery
PROC: 0SRC0J9 Replacement of Right Knee Joint with Synthetic Substitute, Cemented, Open Approach (ICD-10-PCS; principal; 2018-02-05 11:30)
DX: M17.11 Unilateral primary osteoarthritis, right knee (principal); G89.29 Other chronic pain; K21.9 Gastro-esophageal reflux disease without esophagitis; M41.9 Scoliosis, unspecified; F79 Unspecified intellectual disabilities; G40.909 Epilepsy, unspecified, not intractable, without status epilepticus; H40.9 Unspecified glaucoma; K22.70 Barrett's esophagus without dysplasia; Z96.651 Presence of right artificial knee joint; G56.03 Carpal tunnel syndrome, bilateral upper limbs; E66.3 Overweight; M85.89 Other specified disorders of bone density and structure, multiple sites; Z88.1 Allergy status to other antibiotic agents; R00.1 Bradycardia, unspecified; D64.9 Anemia, unspecified; Z68.38 Body mass index [BMI] 38.0-38.9, adult
CPT/HCPCS: 36415; 71046-TC; 73560-TC; 80048; 81003; 85025; 86886; 86900; 86901; 86920; 87081; 88305; 88311; 93005; 97110-GP; 97116-GP; 97530-GP; C1713; C1776; J0690; J1200; J1885; J2250; J2274; J2405; J3370; J3490; J7120; Q0163